=== PATIENT | female | born 1980 | race Caucasian/White ===

== ENCOUNTER 2017-10-09 10:44 | Inpatient (IN) | payer MEDICAID, OTHER ==
--- NOTE | 2017-10-09 11:02 | C.PDOC ---
History Of Present Illness 37 year old female brought to ED via BLS from [facility] for psych admission. Patient was accepted by Dr. Knight for major depressive disorder. (+) suicidal ideation with plan to overdose. Otherwise, pt denies homicidal ideation, or any active physical complaints at this time. Chief Complaint (Nursing): Psychiatric Evaluation History Per: Patient History/Exam Limitations: no limitations Onset/Duration Of Symptoms: Days Current Symptoms Are (Timing): Still Present Severity: None Pain Scale Rating Of: 0 Associated Symptoms: Suicidal Thoughts, Suicidal Plan Involuntary Hold By: None Recent travel outside of the [place]: No Additional History Per: EMS Past Medical History Reviewed: Historical Data, Nursing Documentation, Vital Signs Vital Signs: Last Vital Signs Temp 98.8 F 10/09/17 10:48 Pulse 80 10/09/17 10:48 Resp 18 10/09/17 10:48 BP 108/70 10/09/17 10:48 Pulse Ox 100 10/09/17 11:09 - Medical History PMH: Depression Family History: States: Unknown Family Hx - Social History Hx Alcohol Use: Yes Hx Substance Use: Yes Review Of Systems Except As Marked, All Systems Reviewed And Found Negative. Constitutional: Negative for: Fever, Chills Cardiovascular: Negative for: Chest Pain Respiratory: Negative for: Shortness of Breath Psych: Positive for: Suicidal ideation Physical Exam - Physical Exam Appears: Non-toxic, No Acute Distress Skin: Normal Color, Warm, Dry Head: Atraumatic, Normacephalic Eye(s): bilateral: Normal Inspection, Other (tearful) Oral Mucosa: Moist Neck: Normal ROM, Supple Cardiovascular: Rhythm Regular Respiratory: Normal Breath Sounds, No Rales, No Rhonchi, No Wheezing Extremity: Normal ROM Neurological/Psych: Oriented x3, Normal Speech ED Course And Treatment O2 Sat by Pulse Oximetry: 100 (RA) Pulse Ox Interpretation: Normal Medical Decision Making Medical Decision Making: Pt will be admitted to psych floor under Dr. Knight's service for major depressive disorder. 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 - Scribe Statement The provider has reviewed the documentation as recorded by the Scribe KP All medical record entries made by the Scribe were at my direction and personally dictated by me. I have reviewed the chart and agree that the record accurately reflects my personal performance of the history, physical exam, medical decision making, and the department course for this patient. I have also personally directed, reviewed, and agree with the discharge instructions and disposition. Decision To Admit - Pt Status Changed To: Hospital Disposition Of: Inpatient - Admit Certification Admit to Inpatient:: After my assessment, the patient will require hospitalization for at least two midnights. This is because of the severity of symptoms shown, intensity of services needed, and/or the medical risk in this patient being treated as an outpatient. - InPatient: Physician Admission Certification: I certify that this patient requires 2 or more midnights of care for the following reason:: will need more than 2 adys of hospitalization to stabilize her condition. - . Bed Request Type: Psychiatry Admitting Physician: Howie Knight Patient Diagnosis: Major depression
--- NOTE | 2017-10-09 13:21 | PCM.PSYCH ---
Initial Psychiatric Evaluation - Initial Psychiatric Evaluation Type of Admission: Voluntary Legal Status: Capacity Chief Complaint (in patient's own words): 'Very depressed" History of Present Illness and Precipitating Events: The patient is seen, chart reviewed and case discussed. This is a 37-year-old Greek Bulgarian female, with 2 children aged 2 and 21. The patient is unemployed for the last 2 years and lives with her and 2 children. The patient is transferred from [facility] for suicidal ideation. She was feeling depressed for the last few weeks and recently she thought about either cutting herself or overdosing on medications. The patient has alcohol dependence history for the last 2 years and she was in detox in July at [facility] followed by one month rehabilitation at [facility]. She relapsed within a week or so and has been using alcohol along with some Xanax, marijuana and cocaine (both crack and intranasal). Couple of days ago, she was intoxicated and had a DUI including smashing [address] Her court date is on October 18 but she got significantly depressed after that incident. She admits to not following up with IOP or AA after rehabilitation and she was not given any anti-craving medications. Past psych history: Denies Family psych history: Denies Medical history: Current Medications: Active Medications Generic Name Dose Route Start Last Admin Trade Name Freq PRN Reason Stop Dose Admin Escitalopram Oxalate 10 mg 10/09/17 13:00 Lexapro PO DAILY DEE DEE Gabapentin 300 mg 10/09/17 18:00 Neurontin PO BID DEE DEE Hydroxyzine HCl 25 mg 10/09/17 12:53 Atarax PO Q4H PRN Anxiety Ibuprofen 400 mg 10/09/17 12:56 Motrin Tab PO Q6H PRN Pain, moderate (4-7) Lorazepam 1 mg 10/09/17 13:19 Ativan PO Q6H PRN alcohol withdrawal Naltrexone HCl 50 mg 10/09/17 13:30 Revia PO DAILY DEE DEE Trazodone HCl 50 mg 10/09/17 22:00 Desyrel PO HS PRN Insomnia Past Psychiatric History - Past Psychiatric History Previous Treatment History: None Pertinent Medical Hx (Current Medical&Sleep Prob, Allergies): Allergies Allergy/AdvReac Type Severity Reaction Status Date / Time No Known Allergies Allergy Verified 10/09/17 10:55 Escitalopram [Lexapro] 10 mg PO DAILY 10/09/17 Review of Systems - Neurological Neurological: UNREMARKABLE - Psychiatric Psychiatric: Abnormal Sleep Pattern, Anhedonia, Anxiety, Behavioral Changes, Depression, Difficulty Concentrating, Irritability, Mood Swings, Suicidal Ideation (no plans or intentions). absent: Hallucinations, Homicidal Ideation, Paranoia Mental Status Examination - Personal Presentation Personal Presentation: Looks stated age - Affect Affect: Constricted - Motor Activity Motor Activity: Calm - Reliability in Providing Information Reliability in Providing Information: Good - Speech Speech: Organized - Mood Mood: Depressed, Anxious - Formal Thought Process Formal Thought Process: No Impairment - Cognitive Functions Orientation: Person, Place, Situation, Time Sensorium: Alert Attention/Concentration: Attentive Estimate of Intelligence: Average Judgement: Intact, as evidence by: Insight regarding need for hospitalization Memory: Recent intact, as evidence by: Ability to recall events of the day, Remote intact, as evidenced by: Abilit to recall sig. life events - Risk Risk: Withdrawal, Diminished functioning - Strength & Assets Inventory Strength & Assets Inventory: Family support, Cooperative - Limitations Limitations: Other DSM 5 DX - DSM 5 DSM 5 Diagnosis: Major depressive disorder, single, severe, without psychosis Alcohol use disorder, severe Cocaine use disorder, mild - Recommended/Plan of Treatment Treatment Recommendations and Plan of Treatment: Start lexapro and increase dose to 20 mg slowly Naltrexone for cravings prn ativan gabapenitn for anxiety and alcohol wdw As need medications All risks, benefits and alternatives of the meds discussed, and the pt agreed and understood. Attend groups and activities Individual therapy daily Psychoeducation and support daily Encourage compliance with meds and after care Refer to outpatient program Teach healthy lifestyle methods, i.e. diet, exercise, meditation Smoking cessation and patch if needed 32 min Projected ELOS: 5 days Prognosis: good w treatment - Smoking Cessation Smoking Cessation Initiated: Yes
--- NOTE | 2017-10-10 08:34 | PCM.BM ---
<Huyen Romero - Last Filed: 10/10/17 08:31> Treatment Plan Problems - Problems identified on initial assessmt Substance Abuse Date Initiated: 10/10/17 Time Initiated: 08:31 Assessment reference: NA Status: Active Depression Date Initiated: 10/10/17 Time Initiated: 08:32 Assessment reference: NA Status: Active Treatment assets and liabiliti Patient Assests: cooperative, insightful, self-reliant, ADL independent, physically healthy, good support system, negotiates basic needs, cognitively intact Patient Liabilities: financial problems, relationship conflicts, substance abuse - Milieu Protocol Maintain good personal hygiene: daily Encourage regular showers, daily Remind patient to perform daily oral care, daily Assist patient to perform ADL's Conduct patient checks and document Observation sheet: Q15 minutes Maintain personal safety: every shift Educate patient to report safety concerns to staff, every shift Monitor environment for contraband/sharps Medication safety: Monitor for expected outcome, potential side effects: every shift, Assess barriers to learning: every shift, Assess readiness for medication education: every shift Milieu Narrative: Start lexapro and increase dose to 20 mg slowly Naltrexone for cravings prn ativan gabapenitn for anxiety and alcohol wdw As need medications All risks, benefits and alternatives of the meds discussed, and the pt agreed and understood. Attend groups and activities Individual therapy daily Psychoeducation and support daily Encourage compliance with meds and after care Refer to outpatient program Teach healthy lifestyle methods, i.e. diet, exercise, meditation Smoking cessation and patch if needed 32 min Discharge/Continuing Care - Treatment Team Participation Patient/Family/SO Statement: Start lexapro and increase dose to 20 mg slowly Naltrexone for cravings prn ativan gabapenitn for anxiety and alcohol wdw As need medications All risks, benefits and alternatives of the meds discussed, and the pt agreed and understood. Attend groups and activities Individual therapy daily Psychoeducation and support daily Encourage compliance with meds and after care Refer to outpatient program Teach healthy lifestyle methods, i.e. diet, exercise, meditation Smoking cessation and patch if needed 32 min <Mary Ellen Collins - Last Filed: 10/12/17 12:14> Family Contact Family involvement: Patient does not wish Family/SO involvement Family contact: Patient declines to allow family contact at present - Goals for Treatment Patient goals for treatment: "I want to attend an IOP in [place], [place] ." Discharge/Continuing Care - Education Needs Education Needs: Patient Medication, Patient Diagnosis/Disease Process, Patient Coping Skills, Patient Placement options, Patient Community resources - Discharge Discharge Criteria: Free of Suicidal thoughts, Normal sleep pattern, Ability to care for self, No longer exhibiting s/s of withdrawal, Reduction of target symptoms Discharge to:: Home, With Family - Treatment Team Participation Discussed with Family/SO: No Was Patient/Family/SO present at Treatment Team Meeting: Yes <Maikel Cai - Last Filed: 10/12/17 22:52> - Diagnosis (1) Major depression Status: Acute Interventions: 10/12/17 22:51 * Assess/adjust medications daily and /or as needed * See patient on an individual basis 7x/week to assess symptoms of depression * Monitor for side effects & effectiveness of medications * (2) Alcohol use disorder, severe, dependence Status: Acute Interventions: 10/12/17 22:51 * Assess 7x/week regarding severity of withdrawal * Educate regarding risks, benefits, side effects and alternatives of medications * Use Motivational Interviewing for abstinence * Use CBT for relapse prevention * Medication management for withdrawal symptoms * Encourage medication assisted treatment *
--- NOTE | 2017-10-11 00:24 | PCM.PYCHPN ---
Psychiatric Progress Note - Psychiatric Progress Note Patient seen today, length of contact: 17 min Patient Chief Complaint: "Still depressed" Problems Identified/Issues Discussed: The pt is seen, chart reviewed, case discussed with staff. The pt is compliant with medications and reports no side-effects. Symptoms are improving but needs more time to stabilize. After care discussed, support and psychoeducation given. Medication Change: Yes (meds adjusted) Medical Record Reviewed: Yes Mental Status Examination - Cognitive Function Orientation: Person, Place, Situation, Time Memory: Intact Attention: WNL Concentration: Poor Association: WNL Fund of Knowledge: WNL - Mood Mood: Depressed, Anxious - Affect Affect: Constricted - Speech Speech: Appropriate - Formal Thought Process Formal Thought Process: No Impairment - Suicidal Ideation Suicidal Ideation: No - Homicidal Ideation Homicidal Ideation: No Goal/Treatment Plan - Goal/Treatment Plan Need for Continued Stay: Discharge may exacerbated symptoms, Severe functional impairment Progress Toward Problem(s) and Goals/Treatment Plan: Lexapro for depression Naltrexone for cravings prn ativan gabapenitn for anxiety and alcohol wdw As need medications All risks, benefits and alternatives of the meds discussed, and the pt agreed and understood. Attend groups and activities Individual therapy daily Psychoeducation and support daily Encourage compliance with meds and after care Refer to outpatient program Teach healthy lifestyle methods, i.e. diet, exercise, meditation Smoking cessation and patch if needed
[2017-10-11 06:41] VITALS: O2SAT 98
--- NOTE | 2017-10-12 22:54 | PCM.PYCHPN ---
Psychiatric Progress Note - Psychiatric Progress Note Patient seen today, length of contact: 18 min Patient Chief Complaint: "Very anxious" Problems Identified/Issues Discussed: The pt is seen, chart reviewed, case discussed with staff. Support given, CBT and MO used briefly No new symptoms reported, improving slowly and needs more time No SEs from medications, risks discussed. After care discussed - she is not sure if she will be incarcerated She will go to a wedding in [place] this Tue so she wants to be dc'ed on [place] She has a court next . Medication Change: Yes (meds adjusted) Medical Record Reviewed: Yes Mental Status Examination - Cognitive Function Orientation: Person, Place, Situation, Time Memory: Intact Attention: WNL Concentration: Poor Association: WNL Fund of Knowledge: WNL - Mood Mood: Depressed, Anxious - Affect Affect: Constricted - Speech Speech: Appropriate - Formal Thought Process Formal Thought Process: No Impairment - Suicidal Ideation Suicidal Ideation: No - Homicidal Ideation Homicidal Ideation: No Goal/Treatment Plan - Goal/Treatment Plan Need for Continued Stay: Discharge may exacerbated symptoms, Severe functional impairment Progress Toward Problem(s) and Goals/Treatment Plan: Lexapro for depression Naltrexone for cravings prn ativan gabapenitn for anxiety and alcohol wdw As need medications All risks, benefits and alternatives of the meds discussed, and the pt agreed and understood. Attend groups and activities Individual therapy daily Psychoeducation and support daily Encourage compliance with meds and after care Refer to outpatient program Teach healthy lifestyle methods, i.e. diet, exercise, meditation Smoking cessation and patch if needed
[2017-10-13 06:44] VITALS: BP 105/66; PULSE 72; RESP 19; TEMP 98.9
--- NOTE | 2017-10-13 09:44 | PCM.PYCHDC ---
Mental Status Examination - Mental Status Examination Orientation: Person Discharge Summary - Discharge Note Consultations:: List each consultation separately and include: 1. Reason for request. 2. Findings. 3. Follow-up Summary of Hospital Course include:: 1. Description of specific treatment plan utilized for patients during their course of treatmen. 2. Summarize the time- course for resolution of acute symptoms and/or regressed behaviors. 3. Describe issues identified and worked on during hospitalization. 4. Describe medication utilized. 5. Describe medical problems identified and treated. 6. Reassessment of suicide risk Summary of Hospital Course: The patient is seen, chart reviewed and case discussed. This is a 37-year-old Ch[place]ian female, with 2 children aged 2 and 21. The patient is unemployed for the last 2 years and lives with her and 2 children. The patient is transferred from [facility] for suicidal ideation. She was feeling depressed for the last few weeks and recently she thought about either cutting herself or overdosing on medications. The patient has alcohol dependence history for the last 2 years and she was in detox in July at [facility] followed by one month rehabilitation at [facility]. She relapsed within a week or so and has been using alcohol along with some Xanax, marijuana and cocaine (both crack and intranasal). Couple of days ago, she was intoxicated and had a DUI including smashing [address] Her court date is on October 18 but she got significantly depressed after that incident. She admits to not following up with IOP or AA after rehabilitation and she was not given any anti-craving medications. Past psych history: Denies Family psych history: Denies Medical history: Options [facility] - Diagnosis (1) Major depression Current Visit: Yes Status: Acute (2) Alcohol use disorder, severe, dependence Current Visit: Yes Status: Acute - Final Diagnosis (DSM 5) Condition upon Discharge: STABLE Disposition: HOME/ ROUTINE Follow-up Treatment Plan: Lexapro for depression Naltrexone for cravings prn ativan gabapenitn for anxiety and alcohol wdw As need medications All risks, benefits and alternatives of the meds discussed, and the pt agreed and understood. Attend groups and activities Individual therapy daily Psychoeducation and support daily Encourage compliance with meds and after care Refer to outpatient program Teach healthy lifestyle methods, i.e. diet, exercise, meditation Smoking cessation and patch if needed Prescriptions/Medication Reconciliation: Escitalopram [Lexapro] 10 mg PO DAILY #30 tab Gabapentin [Neurontin] 300 mg PO BID #60 cap Naltrexone [Revia] 50 mg PO DAILY #30 tab traZODone [Desyrel] 50 mg PO HS PRN #30 tab PRN Reason: Insomnia
== END 2017-10-13 12:02 | disposition home or self-care (01) | DRG 430 ==
LOC: C.ER 10:44 → C.5E 10:59
PROC: GZ3ZZZZ Medication Management (ICD-10-PCS; principal; 2017-10-09)
PROC: HZ84ZZZ Medication Management for Substance Abuse Treatment, Naltrexone (ICD-10-PCS; 2017-10-09)
PROC: GZHZZZZ Group Psychotherapy (ICD-10-PCS; 2017-10-09)
PROC: GZ56ZZZ Individual Psychotherapy, Supportive (ICD-10-PCS; 2017-10-09)
PROC: HZ2ZZZZ Detoxification Services for Substance Abuse Treatment (ICD-10-PCS; 2017-10-09)
PROC: HZ80ZZZ Medication Management for Substance Abuse Treatment, Nicotine Replacement (ICD-10-PCS; 2017-10-09)
DX: F32.2 Major depressive disorder, single episode, severe without psychotic features (principal); F10.20 Alcohol dependence, uncomplicated; F14.10 Cocaine abuse, uncomplicated; R45.851 Suicidal ideations; F41.9 Anxiety disorder, unspecified; F17.210 Nicotine dependence, cigarettes, uncomplicated